=== PATIENT | male | born 1985 | race Two or more races ===

== ENCOUNTER 2019-11-29 12:21 | Emergency (ER) | payer MEDICAID ==
[~2019-11-29] VITALS: Ht 172.7 cm; Wt 96.0 kg
[2019-11-29 12:39] VITALS: BP 138/98
== END 2019-11-29 14:00 | disposition home or self-care (01) ==
LOC: EDSEX 12:22 → ER 12:22
DX: J02.9 Acute pharyngitis, unspecified (principal); F17.200 Nicotine dependence, unspecified, uncomplicated; J45.909 Unspecified asthma, uncomplicated; Z20.828 Contact with and (suspected) exposure to other viral communicable diseases
CPT/HCPCS: 71045; 99283